=== PATIENT | male | born 2000 | race Caucasian/White ===

== ENCOUNTER 2018-08-25 04:09 | Emergency (ER) | payer SELFPAY ==
[2018-08-25 04:12] VITALS: BP 121/88
--- NOTE | 2018-08-25 04:20 | ER Report ---
History and Physical Time Seen By MD: 04:11 Hx. of Stated Complaint: PRISON CLEARANCE HPI/ROS CHIEF COMPLAINT: alcohol intoxication, retirement clearance HISTORY OF PRESENT ILLNESS: This is a 18 year old male. He was brought to the ER by [employer] for intoxication. He denies pain or injury. He st ates that he does not know how much he drank tonight, but it was way too much. No other complaints. Allergies: Uncoded Allergies: SHELLFISH (Allergy, Severe, 08/25/18) FACIAL SWELLING Home Meds No Active Prescriptions or Reported Meds Reviewed Nurses Notes: Yes Hx Substance Use Disorder: Yes (MARIJUANA) Hx Alcohol Use: Yes Constitutional Vital Sign - Last 24 Hours 08/25/18 04:12 Temp 97.5 Pulse 83 Resp 16 B/P (MAP) 121/88 Pulse Ox 96 O2 Delivery Room Air Physical Exam General Appearance: The patient is alert, has no immediate need for airway problems. He is intoxicated. Eyes: Pupils equal and round no injection. ENT: Normal oral mucosa. Moist mucous membranes. Tympanic membranes are normal. Neck: Neck is supple and non tender. Respiratory: Chest is non tender, lungs are clear to auscultation. Cardiac: regular rate and rhythm Gastrointestinal: Abdomen is soft and non tender, no masses, bowel sounds normal. Musculoskeletal: Extremities have full range of motion. Non-tender. Neuro: intoxicated. Slurring words. Moving all extremities. No focal deficits Skin: No rashes or lesions. DIFFERENTIAL DIAGNOSIS: After history and physical exam differential diagnosis was considered for alcohol intoxication. Medical Decision Making ED Course/Re-evaluation ED Course No problems other than intoxication noted at this time. Cleared to be discharged with police to retirement. Decision to Disposition Date: Aug 25, 2018 Decision to Disposition Time: 04:20 Depart Departure Latest Vital Signs Vital Signs Date Time Temp Pulse Resp B/P (MAP) Pulse Ox O2 Delivery O2 Flow Rate FiO2 08/25/18 04:12 97.5 83 16 121/88 96 Room Air Impression: Primary Impression: Alcohol intoxication Condition: Condition Unchanged Disposition: [facility] TO PRISON/CORRECTIONAL F New Scripts No Active Prescriptions or Reported Meds Patient Instructions: Alcohol Intoxication (ED) Problem Qualifiers Primary Impression: Alcohol intoxication Complication of substance-induced condition: uncomplicated Qualified Codes: F10.920 - Alcohol use, unspecified with intoxication, uncomplicated YING VALADEZ MD Aug 25, 2018 04:20
== END 2018-08-25 04:25 ==
LOC: ER 04:17
DX: F10.920 Alcohol use, unspecified with intoxication, uncomplicated (principal)
CPT/HCPCS: 99281

== ENCOUNTER 2018-09-29 23:48 | Observation (INO) | payer SELFPAY ==
[2018-09-30] VITALS (32 sets, daily range): BP systolic 78–114; BP diastolic 52–75
--- NOTE | 2018-09-30 00:03 | ER Report ---
History and Physical Time Seen By MD: 00:03 Hx. of Stated Complaint: patient brought into ED via persons who found them in their yard. State he has "a lot of pills in his bag". Patient nonresponsive verbal stimuli HPI/ROS CHIEF COMPLAINT: Altered mental status HISTORY OF PRESENT ILLNESS: This is a 18-year-old male. He was found unconscious in somebody's front yard. They put him in their vehicle and drove him here to the hospital. He is not responsive to painful, physical, or verbal stimuli. His eyes are open but he makes no response. He has a lot of Sherry in his mouth and is spitting that out. No response to sternal rub. Nobody witnessed fall or what happened. He did have a bag full of medicines. It appears he had a bottle of Concerta that was filled on 09/27/2018 for # 30 of the Concerta 36mg tablets, only 9 are left. Uncertain at this time if these were taken by the patient or if he took any other drugs or substances. REVIEW OF SYSTEMS: Unable to obtain Allergies: Uncoded Allergies: SHELLFISH (Allergy, Severe, 08/25/18) FACIAL SWELLING Home Meds Reported Medications Methylphenidate Hcl (METHYLPHENIDATE ER) 36 Mg Tab.er.24, 1 TAB PO DAILY 09/30/18 Past Medical/Surgical History He has one prior visit to the ER for a nursing home clearance for alcohol intoxication. Otherwise unable to obtain any past medical history. Unable To Obtain Past Medical: Unable to Obtain/Update Reviewed Nurses Notes: Yes Hx Substance Use Disorder: Yes (MARIJUANA) Hx Alcohol Use: Yes Constitutional Vital Sign - Last 24 Hours 09/29/18 09/29/18 09/29/18 09/29/18 23:50 23:51 23:53 23:58 Temp 98.0 Pulse 120 125 127 Resp 17 31 32 B/P (MAP) 123/78 (93) 123/78 125/66 (85) Pulse Ox 91 93 93 O2 Delivery Room Air 09/30/18 09/30/18 09/30/18 09/30/18 00:00 00:03 00:08 00:13 Pulse 128 132 120 Resp 28 31 B/P (MAP) 120/70 (87) Pulse Ox 94 91 11/11/18 11/11/18 11/11/18 11/11/18 00:15 00:18 00:28 00:30 Pulse 121 122 Resp 63 23 B/P (MAP) 129/71 (90) 111/69 (83) Pulse Ox 92 09/30/18 09/30/18 09/30/18 09/30/18 00:33 00:38 00:43 00:45 Pulse 128 115 117 Resp 22 17 12 Pulse Ox 91 98 97 FiO2 100.0 09/30/18 09/30/18 09/30/18 09/30/18 00:45 00:53 00:58 01:00 Pulse 116 106 Resp 33 33 B/P (MAP) 130/89 (103) 104/87 (93) Pulse Ox 98 98 09/30/18 09/30/18 09/30/18 09/30/18 01:03 01:08 01:13 01:15 Pulse 107 110 107 Resp 35 25 21 B/P (MAP) 119/78 (92) Pulse Ox 97 97 98 09/30/18 09/30/18 09/30/18 09/30/18 01:18 01:23 01:28 01:57 Pulse 110 106 Resp 15 28 25 15 B/P (MAP) 122/74 (90) Pulse Ox 98 98 98 96 O2 Delivery Mechanical Ventilator 09/30/18 09/30/18 09/30/18 09/30/18 02:00 02:15 02:18 02:30 Pulse 110 109 Resp 15 13 14 B/P (MAP) 117/84 (95) 112/70 (84) 116/70 (85) Pulse Ox 96 96 O2 Delivery Mechanical Ventilator Mechanical Ventilator 09/30/18 09/30/18 09/30/18 09/30/18 02:45 03:00 03:15 03:30 Temp 97.2 Pulse 110 95 92 92 Resp 13 14 14 14 B/P (MAP) 110/68 (82) 106/63 (77) 102/60 (74) 100/61 (74) Pulse Ox 96 95 95 95 O2 Delivery Mechanical Ventilator Mechanical Ventilator Mechanical Ventilator Mechanical Ventilator Intake and Output 09/29/18 09/29/18 09/30/18 15:00 23:00 07:00 Intake Total 1000 ml Output Total 300 ml Balance 700 ml Physical Exam General Appearance: The patient's eyes are open but staring into space and making no responses to verbal or painful stimuli. Eyes: Pupils are equal, round. Reactive to light. No pallor, injection or icterus. Extraocular movements are intact. ENT: Mucous membranes are moist. Normal oral mucosa. Posterior oropharynx is normal. He does have a significant amount of chewing his mouth. Normal tympanic membranes and canals. Neck: Supple and no apparent tenderness. The patient is placed in a cervical collar for protecting his cervical spine because we do not know what happened him tonight. Respiratory: Lungs are clear to auscultation. There are no retractions or accessory muscle use. Cardiovascular: Regular rate and rhythm. No murmurs, gallops or rubs. Normal capillary refill. No edema. Gastrointestinal: Abdomen is soft, no apparent tenderness. Nondistended. No masses or organomegaly. Normal active bowel sounds. No costovertebral angle tenderness with percussion. Neurological: He makes occasional movements with his arms and legs. He will sometimes lift his head. None of this appears purposeful. Sternal rub shows no response whatsoever. Skin: Warm and dry. No rashes or skin injuries noted. Musculoskeletal: On rolling the patient, there is no step-offs on the thoracic or lumbar spine. No obvious deformities of the extremities. DIFFERENTIAL DIAGNOSIS: After history and physical exam, differential diagnosis was considered for patient with altered mental status, question of ingestion of alcohol, Concerta, or other drugs. Uncertain intent. Medical Decision Making Data Points Result Diagram: 09/30/18 0000 09/30/18 0000 Laboratory Hematology Test 09/30/18 00:00 09/30/18 00:39 Red Blood Count 5.53 M/uL (4.00-5.60) Mean Corpuscular Volume 86.7 fL (80.0-96.0) Mean Corpuscular Hemoglobin 30.4 pg (26.0-33.0) Mean Corpuscular Hemoglobin Concent 35.1 g/dL (32.0-36.0) Red Cell Distribution Width 13.6 % (11.5-14.5) Mean Platelet Volume 7.5 fL (7.2-11.1) Neutrophils (%) (Auto) 64.9 % (39.4-72.5) Lymphocytes (%) (Auto) 23.8 % (17.6-49.6) Monocytes (%) (Auto) 8.0 % (4.1-12.4) Eosinophils (%) (Auto) 2.3 % (0.4-6.7) Basophils (%) (Auto) 1.0 % (0.3-1.4) Nucleated RBC Relative Count (auto) 0.0 /100WBC Neutrophils # (Auto) 6.4 K/uL (2.0-7.4) Lymphocytes # (Auto) 2.3 K/uL (1.3-3.6) Monocytes # (Auto) 0.8 K/uL (0.3-1.0) Eosinophils # (Auto) 0.2 K/uL (0.0-0.5) Basophils # (Auto) 0.1 K/uL (0.0-0.1) Nucleated RBC Absolute Count (auto) 0.00 K/uL Sodium Level 140 mmol/L (137-145) Potassium Level 3.3 mmol/L (3.5-5.0) Chloride Level 104 mmol/L (98-107) Carbon Dioxide Level 22 mmol/L (22-30) Blood Urea Nitrogen 11 mg/dl (9-21) Creatinine 1.00 mg/dl (0.66-1.25) Glomerular Filtration Rate Calc > 60.0 Random Glucose 105 mg/dl (75-110) Lactate 1.9 mmol/L (0.7-2.1) Calcium Level 8.7 mg/dl (8.4-10.2) Total Bilirubin 0.4 mg/dl (0.2-1.3) Aspartate Amino Transf (AST/SGOT) 23 U/L (0-35) Alanine Aminotransferase (ALT/SGPT) 34 U/L (0-56) Alkaline Phosphatase 67 U/L (0-126) Total Protein 6.7 g/dl (6.3-8.2) Albumin 3.9 g/dl (3.5-5.0) Salicylates Level < 10 mg/L Salicylate Last Dose Date unk Acetaminophen Level < 10 ug/ml Serum Alcohol 360 mg/dl Urine Color Colorless Urine Clarity Clear Urine pH 6.0 pH (4.8-9.5) Urine Specific [place] 1.002 Urine Protein Negative mg/dL (NEGATIVE) Urine Glucose (UA) Negative mg/dL (NEGATIVE) Urine Ketones Negative mg/dL (NEGATIVE) Urine Blood Negative (NEGATIVE) Urine Nitrite Negative (NEGATIVE) Urine Bilirubin Negative (NEGATIVE) Urine Urobilinogen Negative mg/dL (0.2-1.9) Urine Leukocyte Esterase Negative (NEGATIVE) Urine RBC None /HPF (0-2/HPF) Urine WBC None /HPF (0-5/HPF) Urine Squamous Epithelial Cells None /LPF (NONE-FEW) Urine Bacteria Negative /HPF (NONE-FEW) Urine Mucus None /HPF (NONE-FEW) Urine Opiates Screen Negative Urine Barbiturates Screen Negative Ur Tricyclic Antidepressants Screen Negative Urine Phencyclidine Screen Negative Urine Amphetamines Screen Negative Urine Benzodiazepines Screen Negative Urine Cocaine Screen Negative Urine Cannabinoids Screen Positive Chemistry Test 09/30/18 00:00 09/30/18 00:39 White Blood Count 9.8 k/uL (4.5-11.0) Red Blood Count 5.53 M/uL (4.00-5.60) Hemoglobin 16.8 g/dL (14.0-18.0) Hematocrit 48.0 % (42.0-52.0) Mean Corpuscular Volume 86.7 fL (80.0-96.0) Mean Corpuscular Hemoglobin 30.4 pg (26.0-33.0) Mean Corpuscular Hemoglobin Concent 35.1 g/dL (32.0-36.0) Red Cell Distribution Width 13.6 % (11.5-14.5) Platelet Count 181 K/uL (150-450) Mean Platelet Volume 7.5 fL (7.2-11.1) Neutrophils (%) (Auto) 64.9 % (39.4-72.5) Lymphocytes (%) (Auto) 23.8 % (17.6-49.6) Monocytes (%) (Auto) 8.0 % (4.1-12.4) Eosinophils (%) (Auto) 2.3 % (0.4-6.7) Basophils (%) (Auto) 1.0 % (0.3-1.4) Nucleated RBC Relative Count (auto) 0.0 /100WBC Neutrophils # (Auto) 6.4 K/uL (2.0-7.4) Lymphocytes # (Auto) 2.3 K/uL (1.3-3.6) Monocytes # (Auto) 0.8 K/uL (0.3-1.0) Eosinophils # (Auto) 0.2 K/uL (0.0-0.5) Basophils # (Auto) 0.1 K/uL (0.0-0.1) Nucleated RBC Absolute Count (auto) 0.00 K/uL Glomerular Filtration Rate Calc > 60.0 Lactate 1.9 mmol/L (0.7-2.1) Calcium Level 8.7 mg/dl (8.4-10.2) Total Bilirubin 0.4 mg/dl (0.2-1.3) Aspartate Amino Transf (AST/SGOT) 23 U/L (0-35) Alanine Aminotransferase (ALT/SGPT) 34 U/L (0-56) Alkaline Phosphatase 67 U/L (0-126) Total Protein 6.7 g/dl (6.3-8.2) Albumin 3.9 g/dl (3.5-5.0) Salicylates Level < 10 mg/L Salicylate Last Dose Date unk Acetaminophen Level < 10 ug/ml Serum Alcohol 360 mg/dl Urine Color Colorless Urine Clarity Clear Urine pH 6.0 pH (4.8-9.5) Urine Specific [place] 1.002 Urine Protein Negative mg/dL (NEGATIVE) Urine Glucose (UA) Negative mg/dL (NEGATIVE) Urine Ketones Negative mg/dL (NEGATIVE) Urine Blood Negative (NEGATIVE) Urine Nitrite Negative (NEGATIVE) Urine Bilirubin Negative (NEGATIVE) Urine Urobilinogen Negative mg/dL (0.2-1.9) Urine Leukocyte Esterase Negative (NEGATIVE) Urine RBC None /HPF (0-2/HPF) Urine WBC None /HPF (0-5/HPF) Urine Squamous Epithelial Cells None /LPF (NONE-FEW) Urine Bacteria Negative /HPF (NONE-FEW) Urine Mucus None /HPF (NONE-FEW) Urine Opiates Screen Negative Urine Barbiturates Screen Negative Ur Tricyclic Antidepressants Screen Negative Urine Phencyclidine Screen Negative Urine Amphetamines Screen Negative Urine Benzodiazepines Screen Negative Urine Cocaine Screen Negative Urine Cannabinoids Screen Positive Toxicology Test 09/30/18 00:00 09/30/18 00:39 Salicylates Level < 10 mg/L Salicylate Last Dose Date unk Acetaminophen Level < 10 ug/ml Serum Alcohol 360 mg/dl Urine Opiates Screen Negative Urine Barbiturates Screen Negative Ur Tricyclic Antidepressants Screen Negative Urine Phencyclidine Screen Negative Urine Amphetamines Screen Negative Urine Benzodiazepines Screen Negative Urine Cocaine Screen Negative Urine Cannabinoids Screen Positive Urinalysis Test 09/30/18 00:39 Urine Color Colorless Urine Clarity Clear Urine pH 6.0 pH (4.8-9.5) Urine Specific [place] 1.002 Urine Protein Negative mg/dL (NEGATIVE) Urine Glucose (UA) Negative mg/dL (NEGATIVE) Urine Ketones Negative mg/dL (NEGATIVE) Urine Blood Negative (NEGATIVE) Urine Nitrite Negative (NEGATIVE) Urine Bilirubin Negative (NEGATIVE) Urine Urobilinogen Negative mg/dL (0.2-1.9) Urine Leukocyte Esterase Negative (NEGATIVE) Urine RBC None /HPF (0-2/HPF) Urine WBC None /HPF (0-5/HPF) Urine Squamous Epithelial Cells None /LPF (NONE-FEW) Urine Bacteria Negative /HPF (NONE-FEW) Urine Mucus None /HPF (NONE-FEW) EKG/Imaging EKG Interpretation 12 lead EKG: Rhythm: Sinus tachycardia, rate 129 [place]: normal QRS: normal ST segments: normal Imaging Portable chest: Indication: Tube placement. Technique: 2 frontal images were obtained. Comparison: None. Lines and tubes: The tip of the ET tube is 3 cm above the hamida. The NG tube is in the fundus of the stomach. Skeletal and soft tissue structures: Intact and unremarkable. Heart and mediastinum: The heart appears mildly enlarged. Lung escalante: There is evidence of pulmonary vascular congestion and edema. Pleural spaces: Unremarkable. Impression: The ET tube and NG tube are in satisfactory position. There is evidence of pulmonary vascular congestion and edema. Report Dictated By: Nico Bustos MD at 09/30/2018 1:[address]: Indication: Altered bowel status. Technique: Contiguous axial sections were obtained from the base to the vertex without contrast enhancement. One of the following dose optimization techniques was utilized in the perform ance of this exam: Automated exposure control; adjustment of the mA and/or kV according to the patient's size; or use of an iterative reconstruction technique. Specific details can be referenced in the facility's radiology CT exam operational policy. Comparison: None. Findings: There is no evidence of intra-axial or extra-axial hemorrhage. No focal areas of decreased or increased attenuation are identified. There is no evidence of mass, edema, or shift of the midline structures. The size, shape, and configuration of the ventricular system are normal. The skeletal structures are intact and unremarkable. There is no evidence of fracture or other acute deformity. There is minimal mucosal thickening in the maxillary sinuses. Impression: Unremarkable unenhanced head CT. Report Dictated By: Nico Bustos MD at 09/30/2018 2:[address] of the cervical spine without contrast: Indication: Altered mental status. Technique: Helical CT was performed through the cervical spine without contrast. Axial, coronal, and sagittal reconstructions are reviewed. One of the following dose optimization techniques was utilized in the performance of this exam: Automated exposure control; adjustment of the mA and/or kV according to the patient's size; or use of an iterative reconstruction technique. Specific details can be referenced in the facility's radiology CT exam operational policy. Comparison: None. Findings: There is no evidence of fracture, compression, subluxation, or other acute deformity. There is uniform mineralization. The skeletal structures are otherwise unremarkable. No paraspinal soft tissue abnormalities are identified. ET and NG tubes are present. IMPRESSION: No evidence of fracture or acute deformity. Report Dictated By: Nico Bustos MD at 09/30/2018 2:[address] of the chest, abdomen, and pelvis with contrast: Indication: Altered mental status and possible injury. Technique: Helical CT was performed through the chest, abdomen, and pelvis following IV contrast enhancement with 75 cc of [id number]. Multiplanar reconstructions are reviewed. One of the following dose optimization techniques was utilized in the performance of this exam: Automated exposure control; adjustment of the mA and/or kV according to the patient's size; or use of an iterative reconstruction technique. Specific details can be referenced in the facility's radiology CT exam operational policy. Comparison: None. Findings: Lungs: Small focal areas of opacity and volume loss are present in the right upper lobe and bilateral lower lobes, most likely related to atelectasis. The lungs are otherwise clear. Pleural spaces: There is no evidence of effusion, focal pleural thickening, or pneumothorax. Mediastinum: The tip of the endotracheal tube is in satisfactory orientation within the trachea. A nasogastric tube passes into the gastric lumen. The vascular structures are unremarkable. The heart and pericardial soft tissues appear unremarkable. There is no evidence of soft tissue mass or lymph node enlargement. Liver: Normal in size, shape, and density. Gallbladder and biliary tree: The gallbladder is partially contracted, but otherwise unremarkable. The bile ducts are normal in caliber. Pancreas: Normal in size, shape, and density. Spleen: Normal in size, shape, and density. Adrenal glands: Within normal limits. Kidneys: Normal in size, shape, and density. There are no signs of obstructive uropathy. Intestinal structures: There is a small opaque structure within the distal gastric lumen, compatible with food or medication. The stomach is otherwise unremarkable. The small bowel loops and colon appear unremarkable. There are no signs of obstruction or focal inflammatory changes. Urinary bladder: A Hoffmann catheter is present in the lumen. A small amount of air is present in the lumen. There are no signs of focal soft tissue abnormality. Pelvic structures: Unremarkable. Ascites or fluid collections: None seen. Skeletal structures: Well mineralized and intact. IMPRESSION: Small areas of parenchymal opacity and volume loss are present in both lungs, most likely related to atelectasis. The chest is otherwise unremarkable. No acute process is identified in the abdomen or pelvis. Report Dictated By: Nico Bustos MD at 09/30/2018 2:[address] of the thoracic spine without contrast: Indication: Possible injury. Technique: Helical CT was performed through the thoracic spine without contrast. Axial, coronal, and sagittal reconstructions are reviewed. One of the following dose optimization techniques was utilized in the performance of this exam: Automated exposure control; adjustment of the mA and/or kV according to the patient's size; or use of an iterative reconstruction technique. Specific details can be referenced in the facility's radiology CT exam operational policy. Comparison: None. Findings: There is no evidence of fracture, compression, subluxation, or other acute deformity. There is mild dextroscoliosis in the upper thoracic spine. There is mild disc space narrowing and marginal osteophyte formation in the mid and lower thoracic spine. There is uniform mineralization. The skeletal st ructures are otherwise unremarkable. No paraspinal soft tissue abnormalities are identified. IMPRESSION: No evidence of fracture or acute deformity. Report Dictated By: Nico Bustos MD at 09/30/2018 2:[address] of the lumbar spine without contrast: Indication: Altered mental status. Possible injury. Technique: Helical CT was performed through the lumbar spine without contrast. Axial, coronal, and sagittal reconstructions are reviewed. One of the following dose optimization techniques was utilized in the performance of this exam: Automated exposure control; adjustment of the mA an d/or kV according to the patient's size; or use of an iterative reconstruction technique. Specific details can be referenced in the facility's radiology CT exam operational policy. Comparison: None. Findings: There is no evidence of fracture, compression, subluxation, or other acute deformity. There is uniform mineralization. The skeletal structures are otherwise unremarkable. No paraspinal soft tissue abnormalities are identified. IMPRESSION: No evidence of fracture or acute deformity. Report Dictated By: Nico Bustos MD at 09/30/2018 2:39 AM ED Course/Re-evaluation Clinical Indication for ER IV: Hydration, IV Access ED Course Based on the patient having a Glascow coma score of 6, and concern regarding his airway with the altered mental status, I elected to go ahead and intubate the patient. See below. Once intubated, used Propofol for sedation starting at 5mcg/kg/min and titrating up to good sedation effect. He did well on the ventilator. No problems noted. Labs returned and positive for Cannabinoids, and alcohol level was 360. CT scans were negative as noted above. Called and spoke with Dr. Parisi to admit to the ICU for supposed Concerta overdose, alcohol intoxication, undetermined intent. Called and let poison control know and they said to continue supportive care. The only concern they would have at this point would be for seizures, and in rare cases, intracranial bleeding reported, but at this level did not think that would be a problem. Decision to Disposition Date: Sep 30, 2018 Decision to Disposition Time: 03:30 Depart Departure Latest Vital Signs Vital Signs Date Time Temp Pulse Resp B/P (MAP) Pulse Ox O2 Delivery O2 Flow Rate FiO2 09/30/18 03:30 92 14 100/61 (74) 95 Mechanical Ventilator 09/30/18 03:00 97.2 09/30/18 00:45 100.0 Impression: Primary Impression: Alcohol intoxication Additional Impressions: Medication overdose Altered level of consciousness Condition: Condition Unchanged Disposition: Admitted from ER Problem Qualifiers Primary Impression: Alcohol intoxication Complication of substance-induced condition: with unspecified complication Qualified Codes: F10.929 - Alcohol use, unspecified with intoxication, unspecified Additional Impressions: Medication overdose Encounter type: initial encounter Injury intent: undetermined intent Mahesh lified Codes: T50.904A - Poisoning by unspecified drugs, medicaments and biological substances, undetermined, initial encounter YING VALADEZ MD Sep 30, 2018 00:03
[2018-09-30 00:26] LABS: PLATELET COUNT, AUTOMATED 181 K/uL (150-450)
[2018-09-30] MEDS: PROPOFOL(*)1000 MG/100 ML VIAL 100 ML IV PRN ×2 (00:40→04:45)
[2018-09-30] MEDS ORDERED: IOPAMIDOL 76% 75 ML INFUS BTL 75 ML ONE (00:51)
--- NOTE | 2018-09-30 00:53 | EKG ---
FACILITY: [facility] PATIENT NAME: YING ARCHIBALD : [id number] MR: [id number] V: [id number] EXAM DATE: ORDERING PHYSICIAN: YING VALADEZ TECHNOLOGIST: QI Hoyt Reason : Blood Pressure : / mmHG Vent. Rate : 129 BPM Atrial Rate : 129 BPM P-R Int : 144 ms QRS Dur : 088 ms QT Int : 310 ms P-R-T Axes : 053 049 034 degrees QTc Int : 454 ms Sinus tachycardia Otherwise normal ECG No previous ECGs available Confirmed by AMBER CHAMBERS ([id number]) on 09/30/2018 7:21:15 AM Referred By: Confirmed By:AMBER CHAMBERS
[2018-09-30] MEDS ORDERED: NS(*) 0.9% 1000 ML BAG 1,000 ML IV ONE (01:25)
[2018-09-30] MEDS ORDERED: ETOMIDATE 20 MG/10 ML VIAL IVP ONE (01:25)
[2018-09-30] MEDS ORDERED: SUCCINYLCHOL CHL 200MG/10ML VL IVP ONE (01:25)
--- NOTE | 2018-09-30 01:25 | RADIOLOGY IMAGING REPORT ---
FACILITY: [facility] [place] PATIENT NAME: Aneudy Reyes : 2000 MR: [id number] V: [id number] EXAM DATE: ORDERING PHYSICIAN: ANEUDY VALADEZ TECHNOLOGIST: Location: [facility] [place] Patient: Aneudy Reyes : 2000 Visit/Account:[id number] Date of Sevice: 09/30/2018 Portable chest: Indication: Tube placement. Technique: 2 frontal images were obtained. Comparison: None. Lines and tubes: The tip of the ET tube is 3 cm above the hamida. The NG tube is in the fundus of the stomach. Skeletal and soft tissue structures: Intact and unremarkable. Heart and mediastinum: The heart appears mildly enlarged. Lung escalante: There is evidence of pulmonary vascular congestion and edema. Pleural spaces: Unremarkable. Impression: The ET tube and NG tube are in satisfactory position. There is evidence of pulmonary vasc ular congestion and edema. Report Dictated By: Nico Bustos MD at 09/30/2018 1:19 AM Report E-Signed By: Nico Bustos MD at 09/30/2018 1:22 AM [id number]
--- NOTE | 2018-09-30 02:28 | RADIOLOGY IMAGING REPORT ---
FACILITY: [facility] PATIENT NAME: Aneudy Reyes : 2000 MR: [id number] V: [id number] EXAM DATE: ORDERING PHYSICIAN: ANEUDY VALADEZ TECHNOLOGIST: Location: [facility] - [place] Patient: Aneudy Reyes : 2000 Visit/Account:[id number] Date of Sevice: 09/30/[address]: Indication: Altered bowel status. Technique: Contiguous axial sections were obtained from the base to the vertex without contrast enhan cement. One of the following dose optimization techniques was utilized in the performance of this exam: Autom ated exposure control; adjustment of the mA and/or kV according to the patient's size; or use of an i terative reconstruction technique. Specific details can be referenced in the facility's radiology CT exam operational policy. Comparison: None. Findings: There is no evidence of intra-axial or extra-axial hemorrhage. No focal areas of decreased or increased attenuation are identified. There is no evidence of mass, edema, or shift of the midline structures. The size, shape, and configuration of the ventricular system are normal. The skeletal st ructures are intact and unremarkable. There is no evidence of fracture or other acute deformity. Ther e is minimal mucosal thickening in the maxillary sinuses. Impression: Unremarkable unenhanced head CT. Report Dictated By: Nico Bustos MD at 09/30/2018 2:23 AM Report E-Signed By: Nico Bustos MD at 09/30/2018 2:25 AM WSN:[id number]
--- NOTE | 2018-09-30 02:28 | RADIOLOGY IMAGING REPORT ---
[facility] PATIENT NAME: Aneudy Reyes : 2000 MR: [id number] V: [id number] EXAM DATE: ORDERING PHYSICIAN: ANEUDY VALADEZ TECHNOLOGIST: Location: [facility] - [place] Patient: Aneudy Reyes : 2000 Visit/Account:[id number] Date of Sevice: 09/30/2018 CT of the cervical spine without contrast: Indication: Altered mental status. Technique: Helical CT was performed through the cervical spine without contrast. Axial, coronal, and sagittal reconstructions are reviewed. One of the following dose optimization techniques was utilized in the performance of this exam: Autom ated exposure control; adjustment of the mA and/or kV according to the patient's size; or use of an i terative reconstruction technique. Specific details can be referenced in the facility's radiology CT exam operational policy. Comparison: None. Findings: There is no evidence of fracture, compression, subluxation, or other acute deformity. There is uniform mineralization. The skeletal structures are otherwise unremarkable. No paraspinal soft ti ssue abnormalities are identified. ET and NG tubes are present. IMPRESSION: No evidence of fracture or acute deformity. Report Dictated By: Nico Bustos MD at 09/30/2018 2:19 AM Report E-Signed By: Nico Bustos MD at 09/30/2018 2:23 AM WSN:[id number]
--- NOTE | 2018-09-30 02:43 | RADIOLOGY IMAGING REPORT ---
FACILITY: [facility] [place]IENT NAME: Aneudy Reyes : 2000 MR: [id number] V: [id number] EXAM DATE: ORDERING PHYSICIAN: ANEUDY VALADEZ TECHNOLOGIST: Location: [facility] Patient: Aneudy Reyes : 2000 Visit/Account:[id number] Date of Sevice: 09/30/2018 CT of the chest, abdomen, and pelvis with contrast: Indication: Altered mental status and possible injury. Technique: Helical CT was performed through the chest, abdomen, and pelvis following IV contrast enha ncement with 75 cc of [id number]. Multiplanar reconstructions are reviewed. One of the following dose optimization techniques was utilized in the performance of this exam: Autom ated exposure control; adjustment of the mA and/or kV according to the patient's size; or use of an i terative reconstruction technique. Specific details can be referenced in the facility's radiology CT exam operational policy. Comparison: None. Findings: Lungs: Small focal areas of opacity and volume loss are present in the right upper lobe and bilateral lower lobes, most likely related to atelectasis. The lungs are otherwise clear. Pleural spaces: There is no evidence of effusion, focal pleural thickening, or pneumothorax. Mediastinum: The tip of the endotracheal tube is in satisfactory orientation within the trachea. A na sogastric tube passes into the gastric lumen. The vascular structures are unremarkable. The heart and pericardial soft tissues appear unremarkable. There is no evidence of soft tissue mass or lymph node enlargement. Liver: Normal in size, shape, and density. Gallbladder and biliary tree: The gallbladder is partially contracted, but otherwise unremarkable. Th e bile ducts are normal in caliber. Pancreas: Normal in size, shape, and density. Spleen: Normal in size, shape, and density. Adrenal glands: Within normal limits. Kidneys: Normal in size, shape, and density. There are no signs of obstructive uropathy. Intestinal structures: There is a small opaque structure within the distal gastric lumen, compatible with food or medication. The stomach is otherwise unremarkable. The small bowel loops and colon appea r unremarkable. There are no signs of obstruction or focal inflammatory changes. Urinary bladder: A Hoffmann catheter is present in the lumen. A small amount of air is present in the janelle men. There are no signs of focal soft tissue abnormality. Pelvic structures: Unremarkable. Ascites or fluid collections: None seen. Skeletal structures: Well mineralized and intact. IMPRESSION: Small areas of parenchymal opacity and volume loss are present in both lungs, most likely related to atelectasis. The chest is otherwise unremarkable. No acute process is identified in the a bdomen or pelvis. Report Dictated By: Nico Bustos MD at 09/30/2018 2:25 AM Report E-Signed By: Nico Bustos MD at 09/30/2018 2:39 AM WSN:[id number]
--- NOTE | 2018-09-30 02:52 | RADIOLOGY IMAGING REPORT ---
FACILITY: [facility] PATIENT NAME: Aneudy Reyes : 2000 MR: [id number] V: [id number] EXAM DATE: ORDERING PHYSICIAN: ANEUDY VALADEZ TECHNOLOGIST: Location: [facility] - [place] Patient: Aneudy Reyes : 2000 Visit/Account:[id number] Date of Sevice: 09/30/2018 CT of the lumbar spine without contrast: Indication: Altered mental status. Possible injury. Technique: Helical CT was performed through the lumbar spine without contrast. Axial, coronal, and sa gittal reconstructions are reviewed. One of the following dose optimization techniques was utilized in the performance of this exam: Autom ated exposure control; adjustment of the mA and/or kV according to the patient's size; or use of an i terative reconstruction technique. Specific details can be referenced in the facility's radiology CT exam operational policy. Comparison: None. Findings: There is no evidence of fracture, compression, subluxation, or other acute deformity. There is uniform mineralization. The skeletal structures are otherwise unremarkable. No paraspinal soft ti ssue abnormalities are identified. IMPRESSION: No evidence of fracture or acute deformity. Report Dictated By: Nico Bustos MD at 09/30/2018 2:39 AM Report E-Signed By: Nico Bustos MD at 09/30/2018 2:49 AM WSN:[id number]
--- NOTE | 2018-09-30 03:21 | RADIOLOGY IMAGING REPORT ---
FACILITY: [facility] PATIENT NAME: Aneudy Reyes : 2000 MR: [id number] V: [id number] EXAM DATE: ORDERING PHYSICIAN: ANEUDY VALADEZ TECHNOLOGIST: Location: [facility] - [place] Patient: Aneudy Reyes : 2000 Visit/Account:[id number] Date of Sevice: 09/30/2018 CT of the thoracic spine without contrast: Indication: Possible injury. Technique: Helical CT was performed through the thoracic spine without contrast. Axial, coronal, and sagittal reconstructions are reviewed. One of the following dose optimization techniques was utilized in the performance of this exam: Autom ated exposure control; adjustment of the mA and/or kV according to the patient's size; or use of an i terative reconstruction technique. Specific details can be referenced in the facility's radiology CT exam operational policy. Comparison: None. Findings: There is no evidence of fracture, compression, subluxation, or other acute deformity. There is mild dextroscoliosis in the upper thoracic spine. There is mild disc space narrowing and marginal osteophyte formation in the mid and lower thoracic spine. There is uniform mineralization. The skele kishan structures are otherwise unremarkable. No paraspinal soft tissue abnormalities are identified. IMPRESSION: No evidence of fracture or acute deformity. Report Dictated By: Nico Bustos MD at 09/30/2018 2:58 AM Report E-Signed By: Nico Bustos MD at 09/30/2018 3:00 AM WSN:[id number]
[2018-09-30] MEDS ORDERED: INFLUENZA VIRUS VAC 0.5ML SYR IM ONLY ONE (04:25)
[2018-09-30] MEDS ORDERED: PROPOFOL(*)1000 MG/100 ML VIAL 100 ML IV PRN (04:25)
[2018-09-30] MEDS ORDERED: FLUSH 10 ML SYR IVP PRN (04:25)
[2018-09-30] MEDS ORDERED: METH36TA2 PO (04:27)
[2018-09-30] MEDS ORDERED: KCL/NS* 20 MEQ/1000 ML PREMIX 1,000 ML IV SCH (04:46)
[2018-09-30] MEDS ORDERED: KCL/NS* 20 MEQ/1000 ML PREMIX 1,000 ML IV ONE (04:46)
--- NOTE | 2018-09-30 05:05 | History & Physical ---
History of Present Illness Chief Complaint 18 year old male found down in a yard, unresponsive. The tenants found him and brought him to the ER. They did not know him. History of Present Illness The patient is a 18 year old male who was found unresponsive late last evening. Brought to ER. The patient did not respond to aggressive sternal rub. He was intubated to protect his airway. Looking at the EMR, the patient was in the ER one month ago intoxicated as well. He was evaluated for fdc clearance at that time. The patient had a bottle of Concerta with him that was filled at [facility] on 09/27/18 for 30 tablets. 9 tablets remained in the bottle. He also had an empty bottle of cyclobenzaprine with him that had another person's name on it. Toxicology screen was positive for cannabinoids. Serum alcohol level was 360. No other history could be obtained as the patient was intubated and sedated. History Home Meds Reported Medications Methylphenidate Hcl (METHYLPHENIDATE ER) 36 Mg Tab.er.24, 1 TAB PO DAILY 09/30/18 Allergies: Uncoded Allergies: SHELLFISH (Allergy, Severe, 08/25/18) FACIAL SWELLING Other Social/Family Hx The patient is a student at the [employer]. No other history could be obtained. Hx Alcohol Use: Yes Review of Systems Other Unable to obtain as patient is intubated and sedated. Exam Vital Signs Vital Signs Date Time Temp Pulse Resp B/P (MAP) Pulse Ox O2 Delivery O2 Flow Rate FiO2 09/30/18 03:45 90 13 100/59 (73) 95 Mechanical Ventilator 09/30/18 03:00 97.2 09/30/18 00:45 100.0 General Appearance: Other (Healthy appearing young male, intubated and sedated. ) Neuro: Other (Unable to assess due to sedation. Normal muscularity.) Eyes: PERRLA ENT: Moist Mucous Membranes Neck: Other (Supple.) Cardiovascular: Regular Rate and Rhythm, No Edema, No JVD Respiratory: Clear to Auscultation GI: Other (Abdomen soft, no palpable masses.) Lymph: Cervical Nodes Benign Extremities: Other (R foot dirty. L foot clean. ) Integumentary: Other (Pustules scattered over anterior chest. Abrasion distal to R thumb posteriorly. Very superficial abrasion L knee. Abrasion over R knee and down R pizarro. Finger and toenails trimmed. ) Psych: Other (Sedated. Unable to assess.) Medical Decision Making Data Points Result Diagram: 09/30/18 0000 09/30/18 0000 Item Value Date Time Salicylates Level < 10 mg/L 09/30/18 0000 Salicylate Last Dose Date unk 09/30/18 0000 Acetaminophen Level < 10 ug/ml 09/30/18 0000 Serum Alcohol 360 mg/dl *H 09/30/18 0000 Urine Opiates Screen Negative 09/30/18 0039 Urine Barbiturates Screen Negative 09/30/18 0039 Ur Tricyclic Antidepressants Screen Negative 09/30/18 0039 Urine Phencyclidine Screen Negative 09/30/18 0039 Urine Amphetamines Screen Negative 09/30/18 0039 Urine Benzodiazepines Screen Negative 09/30/18 0039 Urine Cocaine Screen Negative 09/30/18 0039 Urine Cannabinoids Screen Positive 09/30/18 0039 Urine Color Colorless 09/30/18 0039 Urine Clarity Clear 09/30/18 0039 Urine pH 6.0 pH 09/30/18 0039 Urine Specific [place] 1.002 09/30/18 0039 Urine Protein Negative mg/dL 09/30/18 0039 Urine Glucose (UA) Negative mg/dL 09/30/18 0039 Urine Ketones Negative mg/dL 09/30/18 0039 Urine Blood Negative 09/30/18 0039 Urine Nitrite Negative 09/30/18 0039 Urine Bilirubin Negative 09/30/18 0039 Urine Urobilinogen Negative mg/dL 09/30/18 0039 Urine Leukocyte Esterase Negative 09/30/18 0039 Urine RBC None /HPF 09/30/18 0039 Urine WBC None /HPF 09/30/18 0039 Urine Squamous Epithelial Cells None /LPF 09/30/18 0039 Urine Bacteria Negative /HPF 09/30/18 0039 Urine Mucus None /HPF 09/30/18 0039 Lactate 1.9 mmol/L 09/30/18 0000 Calcium Level 8.7 mg/dl 09/30/18 0000 Total Bilirubin 0.4 mg/dl 09/30/18 0000 Aspartate Amino Transf (AST/SGOT) 23 U/L 09/30/18 0000 Alanine Aminotransferase (ALT/SGPT) 34 U/L 09/30/18 0000 Alkaline Phosphatase 67 U/L 09/30/18 0000 Total Protein 6.7 g/dl 09/30/18 0000 Albumin 3.9 g/dl 09/30/18 0000 EKG / Imaging EKG Interpretation FACILITY: [facility] PATIENT NAME: ANEUDY ARCHIBALD : [id number] MR: [id number] V: [id number] EXAM DATE: ORDERING PHYSICIAN: ANEUDY VALADEZ TECHNOLOGIST: PANTIER Test Reason : Blood Pressure : / mmHG Vent. Rate : 129 BPM Atrial Rate : 129 BPM P-R Int : 144 ms QRS Dur : 088 ms QT Int : 310 ms P-R-T Axes : 053 049 034 degrees QTc Int : 454 ms Sinus tachycardia Otherwise normal ECG No previous ECGs available Referred By: Confirmed By: 0003 T: Imaging FACILITY: [facility] PATIENT NAME: Aneudy Archibald : 2000 MR: [id number] V: [id number] EXAM DATE: [id number] ORDERING PHYSICIAN: ANEUDY VALADEZ TECHNOLOGIST: Location: [facility] Patient: Aneudy Archibald : 2000 Visit/Account:[id number] Date of Sevice: 09/30/2018 CT of the thoracic spine without contrast: Indication: Possible injury. Technique: Helical CT was performed through the thoracic spine without contrast. Axial, coronal, and sagittal reconstructions are reviewed. One of the following dose optimization techniques was utilized in the performance of this exam: Automated exposure control; adjustment of the mA and/or kV according to the patient's size; or use of an iterative reconstruction technique. Specific details can be referenced in the facility's radiology CT exam operational policy. Comparison: None. Findings: There is no evidence of fracture, compression, subluxation, or other acute deformity. There is mild dextroscoliosis in the upper thoracic spine. There is mild disc space narrowing and marginal osteophyte formation in the mid and lower thoracic spine. There is uniform mineralization. The skeletal structures are otherwise unremarkable. No paraspinal soft tissue abnormalities are identified. IMPRESSION: No evidence of fracture or acute deformity. Report Dictated By: Nico Bustos MD at 09/30/2018 2:58 AM Report E-Signed By: Nico Bustos MD at 09/30/2018 3:00 AM WSN:[id number] FACILITY: [facility] PATIENT NAME: Aneudy Archibald : 2000 MR: [id number] V: [id number] EXAM DATE: [id number] ORDERING PHYSICIAN: ANEUDY VALADEZ TECHNOLOGIST: Location: [facility] Patient: Aneudy Archibald : 2000 Visit/Account:[id number] Date of Sevice: 09/30/2018 CT of the lumbar spine without contrast: Indication: Altered mental status. Possible injury. Technique: Helical CT was performed through the lumbar spine without contrast. Axial, coronal, and sagittal reconstructions are reviewed. One of the following dose optimization techniques was utilized in the perfor chicho of this exam: Automated exposure control; adjustment of the mA and/or kV according to the patient's size; or use of an iterative reconstruction technique. Specific details can be referenced in the facility's radiology CT exam operational policy. Comparison: None. Findings: There is no evidence of fracture, compression, subluxation, or other acute deformity. There is uniform mineralization. The skeletal structures are otherwise unremarkable. No paraspinal soft tissue abnormalities are identified. IMPRESSION: No evidence of fracture or acute deformity. Report Dictated By: Nico Bustos MD at 09/30/2018 2:39 AM Report E-Signed By: Nico Bustos MD at 09/30/2018 2:49 AM WSN:[id number] FACILITY: [facility] PATIENT NAME: Aneudy Archibald : 2000 MR: [id number] V: [id number] EXAM DATE: ORDERING PHYSICIAN: ANEUDY VALADEZ TECHNOLOGIST: Location: [facility] Patient: Aneudy Archibald : 2000 Visit/Account:[id number] Date of Sevice: 09/30/[address]: Indication: Altered bowel status. Technique: Contiguous axial sections were obtained from the base to the vertex w ithout contrast enhancement. One of the following dose optimization techniques was utilized in the p erformance of this exam: Automated exposure control; adjustment of the mA and/or kV according to the patient's size; or use of an iterative reconstruction technique. Specific details can be referenced in the facility's radiology CT exam operational policy. Comparison: None. Findings: There is no evidence of intra-axial or extra-axial hemorrhage. No focal areas of decreased or increased attenuation are identified. There is no evidence of mass, edema, or shift of the midline structures. The size, shape, and configuration of the ventricular system are normal. The skeletal structures are intact and unremarkable. There is no evidence of fracture or other acute deformity. There is minimal mucosal thickening in the maxillary sinuses. Impression: Unremarkable unenhanced head CT. Report Dictated By: Nico Bustos MD at 09/30/2018 2:23 AM Report E-Signed By: Nico Bustos MD at 09/30/2018 2:25 AM WSN:[id number] FACILITY: [facility] PATIENT NAME: Aneudy Archibald : 2000 MR: [id number] V: [id number] EXAM DATE: ORDERING PHYSICIAN: ANEUDY VALADEZ TECHNOLOGIST: Location: [facility] Patient: Aneudy Archibald : 2000 Visit/Account:[id number] Date of Sevice: 09/30/2018 CT of the chest, abdomen, and pelvis with contrast: Indication: Altered mental status and possible injury. Technique: Helical CT was performed through the chest, abdomen, and pelvis following IV contrast enhancement with 75 cc of Isovue-370. Multiplanar reconstructions are reviewed. One of the following dose optimization techniques was utilized in the performance of this exam: Automated exposure control; adjustment of the mA and/or kV according to the patient's size; or use of an iterative reconstruction technique. Specific details can be referenced in the facility's radiology CT exam operational policy. Comparison: None. Findings: Lungs: Small focal areas of opacity and volume loss are present in the right upper lobe and bilateral lower lobes, most likely related to atelectasis. The lungs are otherwise clear. Pleural spaces: There is no evidence of effusion, focal pleural thickening, or pneumothorax. Mediastinum: The tip of the endotracheal tube is in satisfactory orientation within the trachea. A nasogastric tube passes into the gastric lumen. The vascular structures are unremarkable. The heart and pericardial soft tissues appear unremarkable. There is no evidence of soft tissue mass or lymph node enlargement. Liver: Normal in size, shape, and density. Gallbladder and biliary tree: The gallbladder is partially contracted, but otherwise unremarkable. The bile ducts are normal in caliber. Pancreas: Normal in size, shape, and density. Spleen: Normal in size, shape, and density. Adrenal glands: Within normal limits. Kidneys: Normal in size, shape, and density. There are no signs of obstructive uropathy. Intestinal structures: There is a small opaque structure within the distal gastric lumen, compatible with food or medication. The stomach is otherwise un remarkable. The small bowel loops and colon appear unremarkable. There are no signs of obstruction or focal inflammatory changes. Urinary bladder: A Hoffmann catheter is present in the lumen. A small amount of air is present in the lumen. There are no signs of focal soft tissue abnormality. Pelvic structures: Unremarkable. Ascites or fluid collections: None seen. Skeletal structures: Well mineralized and intact. IMPRESSION: Small areas of parenchymal opacity and volume loss are present in both lungs, most likely related to atelectasis. The chest is otherwise unremarkable. No acute process is identified in the abdomen or pelvis. Report Dictated By: Nico Bustos MD at 09/30/2018 2:25 AM Report E-Signed By: Nico Bustos MD at 09/30/2018 2:39 AM WSN:[id number] FACILITY: [facility] PATIENT NAME: Aneudy Archibald : 2000 MR: [id number] V: [id number] EXAM DATE: ORDERING PHYSICIAN: ANEUDY VALADEZ TECHNOLOGIST: Location: [facility] Patient: Aneudy Archibald : 2000 Visit/Account:[id number] Date of Sevice: 09/30/2018 Portable chest: Indication: Tube placement. Technique: 2 frontal images were obtained. Comparison: None. Lines and tubes: The tip of the ET tube is 3 cm above the hamida. The NG tube is in the fundus of the stomach. Skeletal and soft tissue structures: Intact and unremarkable. Heart and mediastinum: The heart appears mildly enlarged. Lung escalante: There is evidence of pulmonary vascular congestion and edema. Pleural spaces: Unremarkable. Impression: The ET tube and NG tube are in satisfactory position. There is evidence of pulmonary vascular congestion and edema. Report Dictated By: Nico Bustos MD at 09/30/2018 1:19 AM Report E-Signed By: Nico Bustos MD at 09/30/2018 1:22 AM WSN:[id number] FACILITY: [facility] PATIENT NAME: Aneudy Archibald : 2000 MR: [id number] V: [id number] EXAM DATE: ORDERING PHYSICIAN: ANEUDY VALADEZ TECHNOLOGIST: Location: [facility] Patient: Aneudy Archibald : 2000 Visit/Account:[id number] Date of Sevice: 09/30/2018 CT of the cervical spine without contrast: Indication: Altered mental status. Technique: Helical CT was performed through the cervical spine without contrast. Axial, coronal, and sagittal reconstructions are reviewed. One of the following dose optimization techniques was utilized in the performance of this exam: Automated exposure control; adjustment of the mA and/or kV according to the patient's size; or use of an iterative reconstruction technique. Specific details can be referenced in the facility's radiology CT exam operational policy. Comparison: None. Findings: There is no evidence of fracture, compression, subluxation, or other acute deformity. There is uniform mineralization. The skeletal structures are otherwise unremarkable. No paraspinal soft tissue abnormalities are identified. ET and NG tubes are present. IMPRESSION: No evidence of fracture or acute deformity. Report Dictated By: Nico Bustos MD at 09/30/2018 2:19 AM Report E-Signed By: Nico Bustos MD at 09/30/2018 2:23 AM WSN:[id number] Pre-Admit Course ED Medications Succinylcholine, etomidate, propofol, NS. Medical Record Review: Yes (ER notes from current and past visit.) Assessment and Plan Problems: (1) Altered level of consciousness Status: Acute Assessment & Plan: Likely due to alcohol and possible drug overdoses. The patient does not appear to have had any significant trauma by exam. He had CT scanning of his head, neck, entire spine, chest, abdomen and pelvis. He is intubated and sedated for airway protection. Will treat supportively and intermittently lighten his sedation to check his responsiveness (2) Alcohol intoxication Status: Acute Assessment & Plan: The patient's serum alcohol level is 360. He was seen in ER for alcohol intoxication in August as well. Will give IV thiamine and folic acid. Will have [facility] (substance abuse counselor) assess him after he is extubated. (3) Medication overdose Status: Acute Assessment & Plan: It is unclear if the patient took the Concerta and cyclobenzaprine himself as his toxicology screen was negative for amphetamines and tricyclics. Per poison control, treatment for Concerta OD is supportive care with risk for seizures and at high levels, risk for cerebral bleeding. Will aggressively hydrate and place on telemetry. The patient is intubated and sedated to protect his airway. Will monitor closely. Seizure precautions. (4) Hypokalemia Status: Acute Assessment & Plan: Will add 20meq of potassium to each liter of fluid. Recheck BMP at 1400. (5) GI bleed Status: Acute Assessment & Plan: NG tube is putting out bloody drainage (maxx/coffee ground colored). Will place on Protonix IV 40mg bid. Monitor closely. Repeat CBC at 1400. (6) Abnormal chest CT Status: Acute Assessment & Plan: CT shows volume loss and opacity in the RUL and both lower lobes likely due to atelectasis per radiology. The patient is currently afebrile with normal WBC. He certainly is at risk for aspiration however. Monitor closely and repeat CXR if he develops increased O2 requirements, elevated WBC or fever. Time Spent on Plan of Care: < 30 min Copies to: CECY DURÁN MD ; Venous Thromboembolism Antithrombotics Is Pt On Any Antithrombotics?: Yes Exam Sepsis Risk: No Definite Risk Problem Qualifiers (1) Alcohol intoxication: Complication of substance-induced condition: with unspecified complication Qualified Codes: F10.929 - Alcohol use, unspecified with intoxication, unspecified (2) Medication overdose: Encounter type: initial encounter Injury intent: undetermined intent Qualified Codes: T50.904A - Poisoning by unspecified drugs, medicaments and biological substances, undetermined, initial encounter AMBER MARTIN MD Sep 30, 2018 05:05
[2018-09-30] MEDS: LORazepam 2 MG/ML VIAL IVP PRN ×2 (06:24→07:14)
[2018-09-30] MEDS ORDERED: LORazepam 2 MG/ML VIAL ONE (06:32)
[2018-09-30] MEDS ORDERED: PANTOPRAZOLE SOD 40 MG IV VIAL IVP SCH (09:00)
[2018-09-30] MEDS ORDERED: ORAL SUCTION/CHLORHX/SWAB KIT MT SCH (09:00)
[2018-09-30] MEDS ORDERED: FOLIC ACID(*) 50 MG/10 ML INJ 1 MG in NS(*) 0.9% 50 ML BAG 50 ML IV SCH (09:00)
[2018-09-30] MEDS ORDERED: FOLIC ACID 50 MG/10 ML 1ML INJ IV SCH (09:00)
[2018-09-30] MEDS ORDERED: THIAMINE HCL 200 MG/2 ML INJ IVP SCH (09:00)
[2018-09-30] MEDS ORDERED: ENOXAPARIN 40 MG/0.4ML SYR SC SCH (09:00)
[2018-09-30] MEDS ORDERED: NS(*) 0.9% 250 ML BAG 250 ML IV PRN (09:25)
--- NOTE | 2018-09-30 11:50 | Hospitalist Depart ---
Discharge Summary Reason for Hosp/Final Diag: (1) Altered level of consciousness Status: Acute Hospital Course & Plan: Resolved, due to alcohol overdose. The patient had no significant trauma by exam. He had CT scanning of his head, neck, entire spine, chest, abdomen and pelvis which were negative. He was intubated and sedated for airway protection, extubated 1030 09.30.2018. Recommend outpatient follow up for at risk drinking. (2) Alcohol intoxication Status: Acute Hospital Course & Plan: The patient's serum alcohol level was 360. He was seen in ER for alcohol intoxication in August as well. Will give IV thiamine and folic acid. Will have [facility] (substance abuse counselor) assess him after he is extubated. BHS saw him after extubation, not at risk of intentional self harm. Recommend outpatient follow up for at risk drinking behaviors. (3) Medication overdose Status: Acute Hospital Course & Plan: It is unclear if the patient took the Concerta and cyclobenzaprine himself as his toxicology screen was negative for amphetamines and tricyclics. Per poison control, treatment for Concerta OD is supportive care with risk for seizures and at high levels, risk for cerebral bleeding. No neurologic deficits after awakening and extubation. (4) Hypokalemia Status: Acute Hospital Course & Plan: Resolved with PRN replacement. (5) GI bleed Status: Acute Hospital Course & Plan: NG tube put out bloody drainage (maxx/coffee ground colored). Secondary to trauma from insertion vs alcohol gastritis. CBC stable. (6) Abnormal chest CT Status: Acute Hospital Course & Plan: CT shows volume loss and opacity in the RUL and both lower lobes likely due to atelectasis per radiology. On RA and no signs infection clinically. Departure Weight (Pounds): 218 Result Diagram: 09/30/18 0000 09/30/18 0000 Condition: Improved Discharge: Home Discharge Instructions Home Meds Reported Medications Methylphenidate Hcl (METHYLPHENIDATE ER) 36 Mg Tab.er.24, 1 TAB PO DAILY 09/30/18 Diet: Regular Venous Thromboembolism Antithrombotics Is Pt On Any Antithrombotics?: Yes Problem Qualifiers (1) Alcohol intoxication: Complication of substance-induced condition: with unspecified complication Qualified Codes: F10.929 - Alcohol use, unspecified with intoxication, unspecified (2) Medication overdose: Encounter type: initial encounter Injury intent: undetermined intent Qualified Codes: T50.904A - Poisoning by unspecified drugs, medicaments and biological substances, undetermined, initial encounter RADHA SANCHEZ DO Sep 30, 2018 11:50
== END 2018-09-30 12:39 | disposition home or self-care (01) ==
LOC: ER 23:59 → INTOOBSV 09-30 03:34 → ICU 09-30 03:34
PROVIDERS: ADMIT Internal Medicine; ATTEND Internal Medicine
DX: F10.929 Alcohol use, unspecified with intoxication, unspecified (principal); E87.6 Hypokalemia; K92.2 Gastrointestinal hemorrhage, unspecified; S80.212A Abrasion, left knee, initial encounter; S60.311A Abrasion of right thumb, initial encounter; S80.211A Abrasion, right knee, initial encounter; S80.811A Abrasion, right lower leg, initial encounter; J98.11 Atelectasis; R40.2432 Glasgow coma scale score 3-8, at arrival to emergency department; Y90.8 Blood alcohol level of 240 mg/100 ml or more; R40.20 Unspecified coma
CPT/HCPCS: 31500; 36600; 70450; 71045; 71260; 72125; 72129; 72132; 74177; 80305; 80320; 80329; 81001; 82803; 83605; 85025; 93005; 94002; 94770; 96365; 96366; 96375; 99285; C1758; C9113; G0378; J0330; J1650; J2060; J2704; J3411; J3480; J3490; J7030; J7050; Q9967; 82040; 82247; 82310; 82374; 82435; 82565; 82947; 84075; 84132; 84155; 84295; 84450; 84460; 84520; 96372